=== PATIENT | female | born 1960 | race Caucasian/White ===

== ENCOUNTER 2021-02-27 06:02 | Inpatient (IN) | payer BC, SELFPAY ==
[~2021-02-27] VITALS: Ht 167.6 cm; Wt 83.6 kg
[2021-02-27 06:04] VITALS: BP_SYST 145
[2021-02-27] MEDS ORDERED: fentaNYL CITRATE/PF 100 MCG/2 ML AMP IVP ONE (06:15)
[2021-02-27] MEDS ORDERED: KETOROLAC TROMETHAMINE 30 MG VIAL IVP ONE ×2 (06:45→10:30)
[2021-02-27] MEDS ORDERED: ONDA4TAB5 PO (06:50)
[2021-02-27] MEDS ORDERED: MULT-1117 PO (06:50)
[2021-02-27] MEDS ORDERED: SYN50 PO (06:50)
[2021-02-27] MEDS ORDERED: VITD2000 PO (06:50)
[2021-02-27] MEDS ORDERED: MODA100T31 PO (06:50)
[2021-02-27] MEDS ORDERED: PRO40 PO (06:50)
[2021-02-27] MEDS ORDERED: NEU300 PO (06:50)
[2021-02-27] MEDS ORDERED: GABA-529 PO (06:50)
[2021-02-27] MEDS ORDERED: ASCO500T20 PO (06:50)
[2021-02-27] MEDS ORDERED: ACET325T PO (06:50)
[2021-02-27] MEDS ORDERED: MIDO5TAB4 PO (06:50)
[2021-02-27 08:10] LABS: CALCIUM 9.1 mg/dL (8.4-11.0); CREATININE 2.72 mg/dL (0.55-1.30); POTASSIUM 3.9 mmol/L (3.5-5.1)
[2021-02-27 08:16] LABS: TOTAL BILIRUBIN 1.1 mg/dL (0.0-1.0)
[2021-02-27 08:20] LABS: BASOPHILS # (AUTO) 0.1 K/uL (0.0-0.2); BASOPHILS % (AUTO) 0.6 % (0.0-2.0); HEMOGLOBIN 9.2 g/dL (12.0-16.0); LYMPHOCYTES # (AUTO) 0.2 K/uL (1.0-5.5); MEAN CORPUSCULAR HEMOGLOBIN 33 pg (27-31); MEAN CORPUSCULAR HGB CONC 32 % (32-36); MEAN CORPUSCULAR VOLUME 103 fL (79.0-98.0); MONOCYTES # (AUTO) 0.5 K/uL (0.0-1.0); MONOCYTES % (AUTO) 6.3 % (1.7-9.3); NEUTROPHILS # (AUTO) 7.5 K/uL (1.8-7.7); NEUTROPHILS % (AUTO) 90.1 % (40.0-70.0); PLATELET COUNT (AUTO) 151 K/uL (130-430); RED BLOOD CELL COUNT(AUTO) 2.82 MIL/uL (4.2-6.2); RED CELL DISTRIBUTION WIDTH 18.9 % (9.0-15.0); WHITE BLOOD COUNT (AUTO) 8.3 K/uL (4.8-10.8)
[2021-02-27 08:23] LABS: INR 1.5 (0.8-1.2); PROTHROMBIN TIME 15.3 SECS (9.5-12.5)
[2021-02-27] MEDS ORDERED: cefTRIAXone 1 GM IVPB PREMIX 50 ML IV ONE (09:15)
[2021-02-27] MEDS ORDERED: AZITHROMYCIN 500 MG in NS 250 ML IV ONE (09:45)
[2021-02-27] MEDS ORDERED: AZITHROMYCIN 500 MG/VIAL (ZITHROMAX) IV ONE (10:11)
[2021-02-27] MEDS ORDERED: KETOROLAC TROMETHAMINE 30 MG VIAL ONE (10:31)
[2021-02-27] MEDS ORDERED: ACETAMINOPHEN 500 MG TABLET PO ONE (10:45)
[2021-02-27 11:45] VITALS: BP_SYST 96
[2021-02-27] MEDS ORDERED: ACETAMINOPHEN 325 MG TABLET PO SCH (11:45)
[2021-02-27] MEDS ORDERED: LevALBUTEROL HCL 1.25 MG/0.5 ML *CONC.* VIAL.NEB (XOPENEX CONC.) INH SCH (11:45)
[2021-02-27] MEDS ORDERED: ONDANSETRON 4 MG ODT TAB PO PRN (11:45)
[2021-02-27] MEDS ORDERED: LevALBUTEROL HCL 1.25 MG/0.5 ML *CONC.* VIAL.NEB (XOPENEX CONC.) INH PRN (11:45)
[2021-02-27] MEDS ORDERED: WARF3TAB59 PO (12:20)
[2021-02-27] MEDS ORDERED: CLOP75TA32 PO (12:27)
[2021-02-27] MEDS ORDERED: [UNRECOGNIZED DRUG - CODE] MC (12:32)
[2021-02-27] MEDS: AZITHROMYCIN 500 MG in NS 250 ML IV SCH (13:00)
[2021-02-27] MEDS ORDERED: MIDODRINE HCL 5 MG TABLET (PROAMATINE) PO ONE (13:00)
[2021-02-27] MEDS ORDERED: NS 500 ML IV ONE (13:00)
[2021-02-27 14:00] VITALS: BP_SYST 101
[2021-02-27] MEDS: cefTRIAXone 1 GM in D5W 50 ML IV SCH (14:00)
[2021-02-27] MEDS ORDERED: EPINEPHrine 1 MG/ML AMP IM ONE (14:30)
[2021-02-27] MEDS ORDERED: predniSONE 20 MG TABLET PO ONE (14:30)
[2021-02-27] MEDS: LevALBUTEROL HCL 1.25 MG/0.5 ML *CONC.* VIAL.NEB (XOPENEX CONC.) INH SCH ×2 (14:33→19:00)
[2021-02-27 15:01] LABS: BASOPHILS # (AUTO) 0.1 K/uL (0.0-0.2); HEMATOCRIT 26.9 % (36-48); HEMOGLOBIN 8.4 g/dL (12.0-16.0); LYMPHOCYTES # (AUTO) 0.3 K/uL (1.0-5.5); LYMPHOCYTES % (AUTO) 4.1 % (20.5-51.5); MEAN CORPUSCULAR HEMOGLOBIN 33 pg (27-31); MEAN CORPUSCULAR HGB CONC 31 % (32-36); MEAN CORPUSCULAR VOLUME 105 fL (79.0-98.0); MONOCYTES # (AUTO) 0.5 K/uL (0.0-1.0); NEUTROPHILS # (AUTO) 7.3 K/uL (1.8-7.7); NEUTROPHILS % (AUTO) 88.9 % (40.0-70.0); PLATELET COUNT (AUTO) 121 K/uL (130-430); RED BLOOD CELL COUNT(AUTO) 2.57 MIL/uL (4.2-6.2); RED CELL DISTRIBUTION WIDTH 18.5 % (9.0-15.0); WHITE BLOOD COUNT (AUTO) 8.2 K/uL (4.8-10.8)
[2021-02-27 15:24] LABS: CALCIUM 9.1 mg/dL (8.4-11.0); CREATININE 2.81 mg/dL (0.55-1.30); POTASSIUM 3.7 mmol/L (3.5-5.1)
[2021-02-27 15:31] LABS: ALBUMIN 2.7 g/dL (3.4-4.8); TOTAL BILIRUBIN 0.9 mg/dL (0.0-1.0)
[2021-02-27] MEDS: MIDODRINE HCL 5 MG TABLET (PROAMATINE) PO SCH ×2 (15:42→21:12)
[2021-02-27 16:21] LABS: C-REACTIVE PROTEIN QUANT 2.9 mg/dL (0-0.5)
[2021-02-27 16:52] LABS: ERYTHROCYTE SEDIMENTATION RATE 6 MM/HR (0-20)
[2021-02-27] MEDS: PANTOPRAZOLE SODIUM 40 MG TAB PO SCH (17:00)
[2021-02-27] MEDS: WARFARIN SODIUM 3 MG TABLET PO SCH (18:00)
[2021-02-27] MEDS ORDERED: [UNRECOGNIZED DRUG - CODE] IV (18:38)
[2021-02-27] MEDS ORDERED: HEPARIN SODIUM,PORCINE 5,000 UNITS/ML VIAL MC ONE ×2 (19:00)
[2021-02-27 19:01] VITALS: BP_SYST 101
[2021-02-27] MEDS ORDERED: NS 100 ML IV PRN (19:15)
[2021-02-27 20:00] VITALS: BP_SYST 98
[2021-02-27] MEDS ORDERED: VANCOMYCIN HCL 1 GM/NS PREMIX 250 ML IV ONE (21:00)
[2021-02-27] MEDS ORDERED: GABAPENTIN 300 MG CAPSULE PO SCH (21:00)
[2021-02-27] MEDS: GABAPENTIN 100 MG CAPSULE PO SCH (21:12)
[2021-02-27] MEDS ORDERED: VANCOMYCIN HCL 1000 MG/VIAL IV ONE (21:39)
[2021-02-28 00:43] VITALS: BP_SYST 87
[2021-02-28] MEDS: LevALBUTEROL HCL 1.25 MG/0.5 ML *CONC.* VIAL.NEB (XOPENEX CONC.) INH SCH ×4 (01:00→20:39)
[2021-02-28] MEDS: PANTOPRAZOLE SODIUM 40 MG TAB PO SCH ×2 (06:27→17:35)
[2021-02-28] MEDS: LEVOTHYROXINE SODIUM 0.05 MG TABLET PO SCH (06:27)
[2021-02-28 06:53] LABS: INR 1.7 (0.8-1.2); PROTHROMBIN TIME 17.7 SECS (9.5-12.5)
[2021-02-28 06:54] LABS: CALCIUM 9.1 mg/dL (8.4-11.0); CREATININE 2.21 mg/dL (0.55-1.30); POTASSIUM 4.5 mmol/L (3.5-5.1)
[2021-02-28 06:59] LABS: BASOPHILS % (AUTO) 0.1 % (0.0-2.0); HEMATOCRIT 28.1 % (36-48); HEMOGLOBIN 8.9 g/dL (12.0-16.0); LYMPHOCYTES # (AUTO) 0.3 K/uL (1.0-5.5); LYMPHOCYTES % (AUTO) 3.5 % (20.5-51.5); MEAN CORPUSCULAR HEMOGLOBIN 33 pg (27-31); MEAN CORPUSCULAR HGB CONC 32 % (32-36); MEAN CORPUSCULAR VOLUME 103 fL (79.0-98.0); MONOCYTES # (AUTO) 0.4 K/uL (0.0-1.0); MONOCYTES % (AUTO) 3.9 % (1.7-9.3); NEUTROPHILS # (AUTO) 8.4 K/uL (1.8-7.7); NEUTROPHILS % (AUTO) 92.5 % (40.0-70.0); RED BLOOD CELL COUNT(AUTO) 2.72 MIL/uL (4.2-6.2); RED CELL DISTRIBUTION WIDTH 17.9 % (9.0-15.0)
[2021-02-28 08:55] VITALS: BP_SYST 136
[2021-02-28] MEDS: MULTIVITAMINS TAB 1 TABLET PO SCH (08:59)
[2021-02-28] MEDS: CLOPIDOGREL BISULFATE 75 MG TABLET PO SCH (08:59)
[2021-02-28] MEDS: CHOLECALCIFEROL (VITAMIN D3) 2,000 UNIT TABLET PO SCH (08:59)
[2021-02-28] MEDS: GABAPENTIN 100 MG CAPSULE PO SCH ×2 (08:59→21:14)
[2021-02-28] MEDS ORDERED: WARFARIN SODIUM 3 MG TABLET PO SCH (09:00)
[2021-02-28] MEDS: ASCORBIC ACID 500 MG TABLET PO SCH (09:00)
[2021-02-28] MEDS: MIDODRINE HCL 5 MG TABLET (PROAMATINE) PO SCH ×3 (09:00→21:15)
[2021-02-28] MEDS: MODAFINIL 100 MG TABLET (PROVIGIL) PO SCH (10:00)
[2021-02-28 11:32] LABS: PLATELET COUNT (AUTO) 96 K/uL (130-430)
[2021-02-28 12:00] VITALS: BP_SYST 117
[2021-02-28] MEDS ORDERED: VANCOMYCIN HCL 750 MG in NS 250 ML IV SCH (12:00)
[2021-02-28] MEDS ORDERED: NS IV SCH (13:00)
[2021-02-28] MEDS ORDERED: [UNRECOGNIZED DRUG - OTHER] IV SCH (13:00)
[2021-02-28] MEDS: AZITHROMYCIN 500 MG in NS 250 ML IV SCH (14:13)
[2021-02-28] MEDS: cefTRIAXone 1 GM in D5W 50 ML IV SCH (15:26)
[2021-02-28] MEDS: BALSAM PERU/CASTOR OIL 60 GM OINT...G. TP SCH (16:00)
[2021-02-28 16:40] VITALS: BP_SYST 125
[2021-02-28] MEDS ORDERED: [UNRECOGNIZED DRUG - OTHER] IV ONE (17:00)
[2021-02-28] MEDS: WARFARIN SODIUM 3 MG TABLET PO SCH (17:37)
[2021-02-28] MEDS ORDERED: ACETAMINOPHEN 325 MG TABLET PO PRN (19:15)
[2021-02-28 20:00] VITALS: BP_SYST 89
[2021-03-01] VITALS: BP_SYST 101
[2021-03-01] MEDS: traMADol HCL HCL 50 MG TABLET (ULTRAM) PO PRN (00:33)
[2021-03-01] MEDS: LevALBUTEROL HCL 1.25 MG/0.5 ML *CONC.* VIAL.NEB (XOPENEX CONC.) INH SCH ×5 (01:55→19:00)
[2021-03-01] MEDS: LEVOTHYROXINE SODIUM 0.05 MG TABLET PO SCH (06:11)
[2021-03-01] MEDS: PANTOPRAZOLE SODIUM 40 MG TAB PO SCH ×2 (06:11→17:30)
[2021-03-01 06:37] LABS: INR 1.5 (0.8-1.2); PROTHROMBIN TIME 15.2 SECS (9.5-12.5)
[2021-03-01 08:08] VITALS: BP_SYST 96
[2021-03-01] MEDS: CLOPIDOGREL BISULFATE 75 MG TABLET PO SCH (08:15)
[2021-03-01] MEDS: GABAPENTIN 100 MG CAPSULE PO SCH ×2 (08:15→20:40)
[2021-03-01] MEDS: CHOLECALCIFEROL (VITAMIN D3) 2,000 UNIT TABLET PO SCH (08:15)
[2021-03-01] MEDS: MIDODRINE HCL 5 MG TABLET (PROAMATINE) PO SCH ×3 (08:15→20:40)
[2021-03-01] MEDS: MULTIVITAMINS TAB 1 TABLET PO SCH (08:15)
[2021-03-01] MEDS: ASCORBIC ACID 500 MG TABLET PO SCH (08:15)
[2021-03-01] MEDS: BALSAM PERU/CASTOR OIL 60 GM OINT...G. TP SCH (09:58)
[2021-03-01] MEDS ORDERED: *CUBICIN 6 MG/KG Q48H/PHARMACY XX PRN (10:00)
[2021-03-01] MEDS: MODAFINIL 100 MG TABLET (PROVIGIL) PO SCH (10:01)
[2021-03-01 11:45] VITALS: BP_SYST 103
[2021-03-01] MEDS ORDERED: COMMUNICATION ORDER XX PRN (12:45)
[2021-03-01] MEDS: DAPTOmycin 500 MG in NS 50 ML IV SCH (12:52)
[2021-03-01] MEDS: HEPARIN SODIUM,PORCINE 5,000 UNITS/ML VIAL IV PRN (13:14)
[2021-03-01] MEDS: AZITHROMYCIN 500 MG in NS 250 ML IV SCH (13:34)
[2021-03-01] MEDS: cefTRIAXone 1 GM in D5W 50 ML IV SCH (14:16)
[2021-03-01 15:25] VITALS: BP_SYST 92
[2021-03-01] MEDS: WARFARIN SODIUM 4 MG TABLET PO SCH (17:31)
[2021-03-01] MEDS: MUPIROCIN 2% TOPICAL OINTMENT 22 GM NS SCH (20:40)
[2021-03-01 20:57] VITALS: BP_SYST 103
[2021-03-02 01:11] VITALS: BP_SYST 103
[2021-03-02] MEDS: LevALBUTEROL HCL 1.25 MG/0.5 ML *CONC.* VIAL.NEB (XOPENEX CONC.) INH SCH ×4 (01:13→21:48)
[2021-03-02 04:35] VITALS: BP_SYST 102
[2021-03-02] MEDS: PANTOPRAZOLE SODIUM 40 MG TAB PO SCH ×2 (06:21→17:54)
[2021-03-02] MEDS: LEVOTHYROXINE SODIUM 0.05 MG TABLET PO SCH (06:21)
[2021-03-02] MEDS: MODAFINIL 100 MG TABLET (PROVIGIL) PO SCH ×2 (10:00→10:24)
[2021-03-02] MEDS: CLOPIDOGREL BISULFATE 75 MG TABLET PO SCH (10:23)
[2021-03-02] MEDS: MUPIROCIN 2% TOPICAL OINTMENT 22 GM NS SCH ×2 (10:23→21:21)
[2021-03-02] MEDS: MULTIVITAMINS TAB 1 TABLET PO SCH (10:23)
[2021-03-02] MEDS: ASCORBIC ACID 500 MG TABLET PO SCH (10:23)
[2021-03-02] MEDS: CHOLECALCIFEROL (VITAMIN D3) 2,000 UNIT TABLET PO SCH (10:23)
[2021-03-02] MEDS: MIDODRINE HCL 5 MG TABLET (PROAMATINE) PO SCH ×3 (10:23→21:17)
[2021-03-02] MEDS: BALSAM PERU/CASTOR OIL 60 GM OINT...G. TP SCH (10:24)
[2021-03-02] MEDS: GABAPENTIN 100 MG CAPSULE PO SCH ×2 (10:24→21:17)
[2021-03-02] MEDS ORDERED: SODIUM THIOSULFATE 25 GM IV SCH ×2 (11:30)
[2021-03-02] MEDS ORDERED: COMMUNICATION ORDER XX ONE (12:45)
[2021-03-02] MEDS: HEPARIN SODIUM,PORCINE 5,000 UNITS/ML VIAL IV PRN (13:11)
[2021-03-02] MEDS ORDERED: HEPARIN SODIUM,PORCINE 5,000 UNITS/ML VIAL SUBCUT ONE (13:30)
[2021-03-02] MEDS: AZITHROMYCIN 500 MG in NS 250 ML IV SCH (14:25)
[2021-03-02] MEDS: cefTRIAXone 1 GM in D5W 50 ML IV SCH (15:41)
[2021-03-02 16:02] VITALS: BP_SYST 94
[2021-03-02] MEDS: WARFARIN SODIUM 4 MG TABLET PO SCH (17:56)
[2021-03-02 20:30] VITALS: BP_SYST 94
[2021-03-02 21:06] LABS: LEGIONELLA PNEUMOPHILIA AB <0.91 OD ratio (0.00-0.90); MYCOPLASMA PNEUMONIAE IgM <770 U/mL (0-769)
[2021-03-02] MEDS: MELATONIN 3 MG TABLET PO PRN (21:17)
[2021-03-02] MEDS: traMADol HCL HCL 50 MG TABLET (ULTRAM) PO PRN (22:22)
[2021-03-03 00:30] VITALS: BP_SYST 102
[2021-03-03] MEDS: LevALBUTEROL HCL 1.25 MG/0.5 ML *CONC.* VIAL.NEB (XOPENEX CONC.) INH SCH ×4 (01:40→23:19)
[2021-03-03] MEDS: LEVOTHYROXINE SODIUM 0.05 MG TABLET PO SCH (05:59)
[2021-03-03] MEDS: PANTOPRAZOLE SODIUM 40 MG TAB PO SCH ×2 (05:59→17:24)
[2021-03-03 07:28] LABS: INR 1.6 (0.8-1.2); PROTHROMBIN TIME 16.2 SECS (9.5-12.5)
[2021-03-03 07:33] LABS: ALBUMIN 2.8 g/dL (3.4-4.8); CALCIUM 9.1 mg/dL (8.4-11.0); CREATININE 2.26 mg/dL (0.55-1.30); POTASSIUM 3.4 mmol/L (3.5-5.1); TOTAL BILIRUBIN 0.9 mg/dL (0.0-1.0)
[2021-03-03 07:40] VITALS: BP_SYST 98
[2021-03-03] MEDS: ASCORBIC ACID 500 MG TABLET PO SCH (09:46)
[2021-03-03] MEDS: GABAPENTIN 100 MG CAPSULE PO SCH ×2 (09:46→21:34)
[2021-03-03] MEDS: CHOLECALCIFEROL (VITAMIN D3) 2,000 UNIT TABLET PO SCH (09:46)
[2021-03-03] MEDS: MIDODRINE HCL 5 MG TABLET (PROAMATINE) PO SCH ×3 (09:46→21:34)
[2021-03-03] MEDS: MULTIVITAMINS TAB 1 TABLET PO SCH (09:46)
[2021-03-03] MEDS: MUPIROCIN 2% TOPICAL OINTMENT 22 GM NS SCH ×2 (09:48→21:37)
[2021-03-03] MEDS: BALSAM PERU/CASTOR OIL 60 GM OINT...G. TP SCH (09:48)
[2021-03-03] MEDS: CLOPIDOGREL BISULFATE 75 MG TABLET PO SCH (09:49)
[2021-03-03] MEDS: MODAFINIL 100 MG TABLET (PROVIGIL) PO SCH (09:50)
[2021-03-03] MEDS: DAPTOmycin 500 MG in NS 50 ML IV SCH (10:14)
[2021-03-03] MEDS: AZITHROMYCIN 500 MG in NS 250 ML IV SCH (11:43)
[2021-03-03 12:00] VITALS: BP_SYST 120
[2021-03-03] MEDS: cefTRIAXone 1 GM in D5W 50 ML IV SCH (13:36)
[2021-03-03] MEDS: traMADol HCL HCL 50 MG TABLET (ULTRAM) PO PRN (15:10)
[2021-03-03 16:00] VITALS: BP_SYST 115
[2021-03-03] MEDS ORDERED: WARFARIN SODIUM 6 MG TABLET PO SCH (18:00)
[2021-03-03 20:00] VITALS: BP_SYST 84
[2021-03-04 00:42] VITALS: BP_SYST 110
[2021-03-04] MEDS: LevALBUTEROL HCL 1.25 MG/0.5 ML *CONC.* VIAL.NEB (XOPENEX CONC.) INH SCH ×3 (01:59→13:00)
[2021-03-04] MEDS: LEVOTHYROXINE SODIUM 0.05 MG TABLET PO SCH (06:30)
[2021-03-04] MEDS: PANTOPRAZOLE SODIUM 40 MG TAB PO SCH ×2 (06:30→17:23)
[2021-03-04 07:31] LABS: INR 1.8 (0.8-1.2); PROTHROMBIN TIME 18.4 SECS (9.5-12.5)
[2021-03-04 07:38] LABS: ALBUMIN 2.9 g/dL (3.4-4.8); CALCIUM 9.5 mg/dL (8.4-11.0); CREATININE 2.82 mg/dL (0.55-1.30); TOTAL BILIRUBIN 0.9 mg/dL (0.0-1.0)
[2021-03-04 07:41] VITALS: BP_SYST 106
[2021-03-04 08:04] LABS: BASOPHILS # (AUTO) 0.1 K/uL (0.0-0.2); BASOPHILS % (AUTO) 1.1 % (0.0-2.0); EOSINOPHILS # (AUTO) 0.1 K/uL (0.0-0.4); EOSINOPHILS % (AUTO) 0.9 % (0.0-4.0); HEMATOCRIT 28.5 % (36-48); LYMPHOCYTES # (AUTO) 0.9 K/uL (1.0-5.5); MEAN CORPUSCULAR HEMOGLOBIN 32 pg (27-31); MEAN CORPUSCULAR HGB CONC 31 % (32-36); MEAN CORPUSCULAR VOLUME 103 fL (79.0-98.0); MONOCYTES # (AUTO) 0.5 K/uL (0.0-1.0); MONOCYTES % (AUTO) 7.8 % (1.7-9.3); NEUTROPHILS # (AUTO) 4.5 K/uL (1.8-7.7); NEUTROPHILS % (AUTO) 75.2 % (40.0-70.0); PLATELET COUNT (AUTO) 112 K/uL (130-430); RED BLOOD CELL COUNT(AUTO) 2.77 MIL/uL (4.2-6.2); RED CELL DISTRIBUTION WIDTH 18.4 % (9.0-15.0)
[2021-03-04] MEDS: CLOPIDOGREL BISULFATE 75 MG TABLET PO SCH (09:07)
[2021-03-04] MEDS: MUPIROCIN 2% TOPICAL OINTMENT 22 GM NS SCH ×2 (09:07→20:36)
[2021-03-04] MEDS: MULTIVITAMINS TAB 1 TABLET PO SCH (09:07)
[2021-03-04] MEDS: GABAPENTIN 100 MG CAPSULE PO SCH ×2 (09:07→20:14)
[2021-03-04] MEDS: ASCORBIC ACID 500 MG TABLET PO SCH (09:07)
[2021-03-04] MEDS: MIDODRINE HCL 5 MG TABLET (PROAMATINE) PO SCH ×3 (09:07→20:13)
[2021-03-04] MEDS: CHOLECALCIFEROL (VITAMIN D3) 2,000 UNIT TABLET PO SCH (09:07)
[2021-03-04] MEDS: BALSAM PERU/CASTOR OIL 60 GM OINT...G. TP SCH (09:14)
[2021-03-04] MEDS: MODAFINIL 100 MG TABLET (PROVIGIL) PO SCH (09:14)
[2021-03-04 12:00] VITALS: BP_SYST 108
[2021-03-04] MEDS: cefTRIAXone 1 GM in D5W 50 ML IV SCH (14:05)
[2021-03-04 16:00] VITALS: BP_SYST 109
[2021-03-04] MEDS ORDERED: WARFARIN SODIUM 7.5 MG TABLET PO SCH (18:00)
[2021-03-04 20:00] VITALS: BP_SYST 111
[2021-03-04] MEDS: MELATONIN 3 MG TABLET PO PRN (20:13)
[2021-03-05] MEDS ORDERED: LIDOCAINE 2%, 20 ML MDV ONE (00:17)
[2021-03-05 00:41] LABS: BASOPHILS # (AUTO) 0.2 K/uL (0.0-0.2); BASOPHILS % (AUTO) 3.3 % (0.0-2.0); EOSINOPHILS # (AUTO) 0.1 K/uL (0.0-0.4); EOSINOPHILS % (AUTO) 2.6 % (0.0-4.0); HEMATOCRIT 26.6 % (36-48); HEMOGLOBIN 8.4 g/dL (12.0-16.0); LYMPHOCYTES # (AUTO) 1.1 K/uL (1.0-5.5); LYMPHOCYTES % (AUTO) 22.2 % (20.5-51.5); MEAN CORPUSCULAR HEMOGLOBIN 33 pg (27-31); MEAN CORPUSCULAR HGB CONC 32 % (32-36); MEAN CORPUSCULAR VOLUME 103 fL (79.0-98.0); MONOCYTES # (AUTO) 0.6 K/uL (0.0-1.0); MONOCYTES % (AUTO) 10.7 % (1.7-9.3); NEUTROPHILS # (AUTO) 3.1 K/uL (1.8-7.7); NEUTROPHILS % (AUTO) 61.2 % (40.0-70.0); PLATELET COUNT (AUTO) 142 K/uL (130-430); RED BLOOD CELL COUNT(AUTO) 2.59 MIL/uL (4.2-6.2); RED CELL DISTRIBUTION WIDTH 18.3 % (9.0-15.0); WHITE BLOOD COUNT (AUTO) 5.1 K/uL (4.8-10.8)
[2021-03-05 00:51] LABS: CALCIUM 9.8 mg/dL (8.4-11.0); CREATININE 3.24 mg/dL (0.55-1.30); POTASSIUM 4.2 mmol/L (3.5-5.1)
[2021-03-05 00:56] LABS: INR 2.1 (0.8-1.2)
[2021-03-05 00:57] LABS: PROTHROMBIN TIME 21.1 SECS (9.5-12.5)
[2021-03-05 01:02] VITALS: BP_SYST 111
== END 2021-03-05 01:15 | disposition short-term general hospital (02) | DRG 314 ==
LOC: SED 06:02 → SIC 09:42 → STU 11:34
PROVIDERS: ADMIT Family Medicine; ATTEND Family Medicine
PROC: 5A1D70Z Performance of Urinary Filtration, Intermittent, Less than 6 Hours Per Day (ICD-10-PCS; principal; 2021-02-27)
PROC: 5A1D70Z Performance of Urinary Filtration, Intermittent, Less than 6 Hours Per Day (ICD-10-PCS; 2021-03-01)
PROC: 5A1D70Z Performance of Urinary Filtration, Intermittent, Less than 6 Hours Per Day (ICD-10-PCS; 2021-03-02)
PROC: 05PYX3Z Removal of Infusion Device from Upper Vein, External Approach (ICD-10-PCS; 2021-03-05)
DX: T80.211A Bloodstream infection due to central venous catheter, initial encounter (principal); A41.2 Sepsis due to unspecified staphylococcus; J18.9 Pneumonia, unspecified organism; J96.21 Acute and chronic respiratory failure with hypoxia; N18.6 End stage renal disease; J90 Pleural effusion, not elsewhere classified; E66.2 Morbid (severe) obesity with alveolar hypoventilation; I13.2 Hypertensive heart and chronic kidney disease with heart failure and with stage 5 chronic kidney disease, or end stage renal disease; D64.9 Anemia, unspecified; Y83.8 Other surgical procedures as the cause of abnormal reaction of the patient, or of later complication, without mention of misadventure at the time of the procedure; M62.50 Muscle wasting and atrophy, not elsewhere classified, unspecified site; I50.9 Heart failure, unspecified; I73.9 Peripheral vascular disease, unspecified; E83.59 Other disorders of calcium metabolism; G62.9 Polyneuropathy, unspecified; I05.9 Rheumatic mitral valve disease, unspecified; I25.10 Atherosclerotic heart disease of native coronary artery without angina pectoris; Z20.822 Contact with and (suspected) exposure to COVID-19; Z74.01 Bed confinement status; Z79.02 Long term (current) use of antithrombotics/antiplatelets; Z87.891 Personal history of nicotine dependence; Z95.5 Presence of coronary angioplasty implant and graft; Z99.2 Dependence on renal dialysis; Y92.89 Other specified places as the place of occurrence of the external cause
CPT/HCPCS: 36415; 36600; 71045; 76376; 80048; 80053; 80202; 82803-TC; 83605; 83880; 84484; 85025; 85610-TC; 85651-TC; 85730-TC; 86140; 86635; 86713; 86738; 87040-TC; 87081; 87186-TC; 93005; 93306; 94640; 94760; 96365; 96367; 96375; 99291; G0378; J0456; J0696; J0878; J1644; J1885; J2001; J3370; J7050; J7060; J7512; J7612